=== PATIENT | male | born 1990 | race Caucasian/White ===

== ENCOUNTER 2021-10-05 11:33 | Emergency (ER) | payer OTHER ==
[~2021-10-05] VITALS: Ht 170.2 cm; Wt 111.1 kg
[~2021-10-05 11:33] MED LIST: BALSALAZIDE DI750 M1 PO; BENTYL 10 MG CA10 M1 PO; BENTYL 20 MG TA20 M1 PO; BICARSIM80 MG PO; GENTAMICIN SU3 MG/ML OPHTHALMIC; IRON325 PO; KLONOPIN2 MG NG; MELATONIN3 MG PO; PAXIL10 MG; PRILOSEC 20 MG20 MG PO; SERTRALINE HCL50 MG PO; TRIAMCINOLONE A15 G1 TP; VITAMIN D2000 UNI1 PO
[2021-10-05 15:36] VITALS: BP 146/77
--- NOTE | 2021-10-06 11:12 | EKG ---
[place] [address] ELECTROCARDIOGRAM REPORT Name: VITALIY GALVAN JR Room: [facility]#: [id number] Admission: 10/05/21 Attend Phys: Discharge: 10/05/21 Date of : 89 Date of Service: 10/05/21 1141 Report #: [id number] THIS REPORT FOR: //name// [facility] ED Test Date: 2021-10-05 Test Time: 11:41:21 Pat Name: VITALIY GALVAN Department: Room: Gender: Inspector Motor Vehicles: : 1990 Requested By: Caden Drummond Order Number: [id number] MD: Golden Moreno Measurements Intervals [place] Rate: 73 P: 37 PA: 165 QRS: 81 QRSD: 105 T: 20 QT: 375 QTc: 414 Interpretive Statements Sinus rhythm ST elev, probable normal early repol pattern Baseline wander in lead(s) V2,V6 No previous ECG available for comparison Electronically Signed On 10-06-2021 11:12:31 [employer] by Golden Moreno [email or web address] <ELECTRONICALLY SIGNED> By: Golden Moreno MD, [facility] 10/06/21 1112 1141 1141 Golden Moreno MD, [facility] /EPI
== END 2021-10-05 15:38 | disposition home or self-care (01) ==
LOC: M.ERS 11:33
DX: R07.89 Other chest pain (principal); R05.9 Cough, unspecified; R53.1 Weakness; Z53.21 Procedure and treatment not carried out due to patient leaving prior to being seen by health care provider